=== PATIENT | female | born 1965 | race Caucasian/White ===

== ENCOUNTER 2016-03-13 17:29 | Inpatient (IN) | payer OTHER ==
[2016-03-13] VITALS (25 sets, daily range): BP systolic 80–144; BP diastolic 51–79; PULSE 78–158; RESP 12–18; TEMP 97.7–98.5; O2SAT 94–100
[~2016-03-13] VITALS: Ht 160 cm; Wt 79.5 kg
[2016-03-13] MEDS ORDERED: NALOXONE HCL 2 MG/2 ML VIAL ONE (17:36)
[2016-03-13] MEDS ORDERED: ETOMIDATE 20 MG/10 ML VIAL ONE (17:45)
[2016-03-13] MEDS ORDERED: SUCCINYLCHOLINE CHLORIDE 200 MG/10 ML VIAL ONE (17:45)
[2016-03-13] MEDS ORDERED: PROPOFOL 1000 MG/100 ML INJ 100 ML ONE (17:54)
[2016-03-13] MEDS ORDERED: DILTIAZEM HCL 25 MG/5 ML VIAL ONE (17:55)
[2016-03-13] MEDS ORDERED: PROPOFOL 1000 MG/100 ML INJ 100 ML IV SCH (18:00)
[2016-03-13] MEDS ORDERED: PHENYLEPHRINE HCL 10 MG/ML VIAL IV PUSH ONE (18:00)
[2016-03-13] MEDS ORDERED: DILTIAZEM HCL 25 MG/5 ML VIAL IVP ONE (18:00)
[2016-03-13] MEDS ORDERED: DILTIAZEM INJ 125 MG in SODIUM CHLORIDE 0.9% INJ 100 ML IV SCH (18:00)
[2016-03-13] MEDS ORDERED: SODIUM CHLORIDE 0.9% FLUSH 5 ML FLUSH IVF PRN (18:00)
[2016-03-13 18:17] LABS: BLOOD, URINE NEG (NEG); GLUCOSE,URINE NEG (NEG); KETONE, URINE NEG (NEG); NITRITE,URINE NEG (NEG); SQUAMOUS EPITHELIAL CELL URINE <1 /hpf (0-5); URINE COLOR YELLOW (YELLW/STRAW)
[2016-03-13 18:23] LABS: COMMENT (UR) CULT NOT INDICATED; CULTURE IF INDICATED CULT NOT INDICATED
[2016-03-13 18:26] LABS: AUTOMATED NEUTROPHIL # 19.2 TH/MM3 (1.8-7.7); BASOPHIL % 0.2 % (0.0-2.0); EOSINOPHIL # 0.1 TH/MM3 (0-0.4); EOSINOPHIL % 0.5 % (0.0-4.0); HEMATOCRIT 50.5 % (35.0-46.0); HEMO FLAGS DIFF FINAL; LYMPH % 12.1 % (9.0-44.0); LYMPHOCYTE # 2.8 TH/MM3 (1.0-4.8); MEAN CELL VOLUME 93.7 FL (80.0-100.0); MEAN CORPUSCULAR HEMOGLOBIN 30.2 PG (27.0-34.0); MEAN CORPUSCULAR HGB CONC 32.2 % (32.0-36.0); MONO % 5.1 % (0.0-8.0); NEUT % 82.1 % (16.0-70.0); PLATELET COUNT 277 TH/MM3 (150-450); RED CELL DISTRIBUTION WIDTH 15.8 % (11.6-17.2); WHITE BLOOD COUNT 23.4 TH/MM3 (4.0-11.0)
[2016-03-13 18:38] LABS: PROTHROMBIN TIME - PATIENT 10.8 SEC (9.8-11.6)
[2016-03-13 18:38] LABS: BLOOD GAS BASE EXCESS -10.5 mmol/L (-2-2); BLOOD GAS CARBOXYHEMOGLOBIN 1.3 % (0-4); BLOOD GAS HCO3 17 mmol/L (22-26); BLOOD GAS METHEMOGLOBIN 2.1 % (0-2); BLOOD GAS O2 HGB SATURATION 96 % (90-100); BLOOD GAS OXYGEN CONTENT 22.9 Vol % (12.0-20.0); BLOOD GAS PCO2 47 mmHg (38-42); BLOOD GAS PO2 330 mmHG (61-120); BLOOD GAS TOTAL HGB 16.4 G/DL (12.0-16.0); TEMP CORR TO 98.6
[2016-03-13 18:39] LABS: CRITICAL VALUE YES; DRAW SITE RT RADIAL; FIO2 100 %; NUMBER OF ARTERIAL PUNCTURES 1; OXYGEN DEVICE VENTILATOR; ULNAR PULSE PRESENT; VENT SETTINGS AC12/500/5PEEP
[2016-03-13 18:40] LABS: STAT YES
--- NOTE | 2016-03-13 18:49 | RADRPT ---
EXAM DATE/TIME: 03/13/2016 18:17 [facility] COMPARISON: No previous studies available for comparison. INDICATIONS : Post intubation. MEDICAL HISTORY : Unobtainable. SURGICAL HISTORY : Unobtainable. ENCOUNTER: Initial ACUITY: 1 day PAIN SCORE: Non-responsive. LOCATION: Bilateral chest FINDINGS: Patient is intubated. Endotracheal tube tip is approximately 1 cm above the shabbir. There is a nasoga stric tube coursing into the stomach. Mild hazy infiltrate seen of both lung bases. No effusion demonstrated. No pneumothorax. CONCLUSION: Tip of the endotracheal tube is close to the shabbir. It could be pulled back a couple centimeters saf shabbir. Nasogastric tube courses into the stomach. Hazy bibasilar infiltrates. Guillaume Ruvalcaba MD on March 13, 2016 at 18:46 Board Certified Radiologist. This report was verified electronically.
[2016-03-13] MEDS ORDERED: CEFEPIME INJ 1,000 MG in SODIUM CHLORIDE 0.9% INJ 100 ML IV ONE (19:00)
[2016-03-13] MEDS ORDERED: VANCOMYCIN INJ 1,000 MG in SODIUM CHLOR 0.9% 250 ML INJ 250 ML IV ONE (19:00)
[2016-03-13 19:02] LABS: AMPHETAMINE, URINE NEG (NEG); BARBITURATES, URINE NEG (NEG); COCAINE, URINE POS (NEG)
--- NOTE | 2016-03-13 19:23 | PD ---
HPI Chief Complaint: Altered Mental Status Time Seen by Provider: 17:31 Travel History International Travel<30 days: No Contact w/Intl Traveler<30days: No Traveled to known affect area: No History of Present Illness HPI 50-year-old woman, reported history of substance abuse, presents emergency Department with altered mental status and hypoxia. EMS reports that girlfriend called the ambulance for decreased responsiveness. They found her unresponsive , heart rate of 180 and A. fib, 68% on room air. They administered Narcan with some improvement. He assisted ventilations with bag valve mask. Roommate/ friend endorse alcohol use today, but no drug use. History Past Medical History Narrative Medical Alcohol use Menopausal: No : 2 Para: 2 Social History Alcohol Use: Yes Tobacco Use: No Allergies-Medications (Allergen,Severity, Reaction): Coded Allergies: No Known Allergies (Verified , 08/07/13) Reported Meds & Prescriptions Reported Meds & Active Scripts Active No Active Prescriptions or Reported Medications Review of Systems ROS Limitations: Clinical Condition Physical Exam Narrative GENERAL: 50-year-old woman, intermittent responsiveness, feels warm. SKIN: Warm and dry. HEAD: Atraumatic. Normocephalic. EYES: Pupils equal and round. No scleral icterus. No injection or drainage. ENT: No nasal bleeding or discharge. Mucous membranes pink and moist. NECK: Trachea midline. No JVD. CARDIOVASCULAR: Heart rate rapid, 170s 180s, irregular. RESPIRATORY: Coarse breath sounds throughout, irregular breathing. GASTROINTESTINAL: Abdomen soft, non-tender, nondistended. Hepatic and splenic margins not palpable. MUSCULOSKELETAL: No obvious deformities. No edema. NEUROLOGICAL: Obtunded with intermittent responsiveness, was actually talk at time didn't answer question or so but then rapidly becomes unresponsive again. Will not really follow any commands. Withdraws from pain in all 4 extremities. Data Data Last Documented VS Vital Signs Date Time Temp Pulse Resp B/P Pulse Ox O2 Delivery O2 Flow Rate FiO2 03/13/16 18:40 88 107/76 100 Ventilator 03/13/16 18:02 18 03/13/16 18:00 100 03/13/16 17:43 97.7 15 Orders Naloxone Inj (Narcan Inj) (03/13/16 17:36) Etomidate Inj (Amidate Inj) (03/13/16 17:45) Succinylcholine Inj (Quelicin Inj) (03/13/16 17:45) Propofol 1000 Mg/100 Ml Inj (Diprivan 10 (03/13/16 17:54) Diltiazem Inj (Cardizem Inj) (03/13/16 17:55) Alcohol (Ethanol) (03/13/16 17:54) Beta Hcg (Quant/Titer) (03/13/16 17:54) Complete Blood Count With Diff (03/13/16 17:54) Comprehensive Metabolic Panel (03/13/16 17:54) Drug Screen, Random Urine (03/13/16 17:54) Prothrombin Time / Inr (Pt) (03/13/16 17:54) Act Partial Throm Time (Ptt) (03/13/16 17:54) Salicylates (Aspirin) (03/13/16 17:54) Tylenol (Acetaminophen) (03/13/16 17:54) Urinalysis - C+S If Indicated (03/13/16 17:54) Chest, Single Ap (03/13/16 17:54) Ct Brain W/O Iv Contrast(Rout) (03/13/16 17:54) Arterial Blood Gas (Abg) (03/13/16 17:54) Blood Glucose (03/13/16 17:54) Iv Access Insert/Monitor (03/13/16 17:54) Ecg Monitoring (03/13/16 17:54) Oximetry (03/13/16 17:54) Ng Gastric Tube Insert/Monitor (03/13/16 17:54) Urinary Catheter Insert/Apply (03/13/16 17:54) Sodium Chloride 0.9% Flush (Ns Flush) (03/13/16 18:00) Restraints Non-Violent SHALINI.Q3H (03/13/16 17:54) Vital Signs (Adult) Q15MX4,Q4H (03/13/16 17:54) ^ Senior Chemist / Telemetry (03/13/16 17:54) Cardiac Rhythm SHALINI.Q8H (03/13/16 17:54) ^ Notify Dr: Other (03/13/16 17:54) Diltiazem Inj (Cardizem Inj) (03/13/16 18:00) Diltiazem Inj (Cardizem Inj) (03/13/16 18:00) Propofol 1000 Mg/100 Ml Inj (Diprivan 10 (03/13/16 18:00) ^ Infusion (03/13/16 17:54) RASS (03/13/16 17:54) Neurological Rass Scale SHALINI.Q2H (03/13/16 17:54) Phenylephrine Inj (Neosynephrine Inj) (03/13/16 18:00) Electrocardiogram (03/13/16 ) Vancomycin Inj (Vancomycin Inj) (03/13/16 19:00) Cefepime Inj (Maxipime Inj) (03/13/16 19:00) Blood Culture (03/13/16 19:02) Labs Laboratory Tests Test 03/13/16 03/13/16 17:58 18:29 White Blood Count 23.4 TH/MM3 Red Blood Count 5.40 MIL/MM3 Hemoglobin 16.3 GM/DL Hematocrit 50.5 % Mean Corpuscular Volume 93.7 FL Mean Corpuscular Hemoglobin 30.2 PG Mean Corpuscular Hemoglobin 32.2 % Concent Red Cell Distribution Width 15.8 % Platelet Count 277 TH/MM3 Mean Platelet Volume 8.5 FL Neutrophils (%) (Auto) 82.1 % Lymphocytes (%) (Auto) 12.1 % Monocytes (%) (Auto) 5.1 % Eosinophils (%) (Auto) 0.5 % Basophils (%) (Auto) 0.2 % Neutrophils # (Auto) 19.2 TH/MM3 Lymphocytes # (Auto) 2.8 TH/MM3 Monocytes # (Auto) 1.2 TH/MM3 Eosinophils # (Auto) 0.1 TH/MM3 Basophils # (Auto) 0.0 TH/MM3 CBC Comment DIFF FINAL Differential Comment Prothrombin Time 10.8 SEC Prothromb Time International 1.0 RATIO Ratio Activated Partial 22.0 SEC Thromboplast Time Urine Color YELLOW Urine Turbidity CLEAR Urine pH 6.0 Urine Specific [place] 1.003 Urine Protein NEG mg/dL Urine Glucose (UA) NEG mg/dL Urine Ketones NEG mg/dL Urine Occult Blood NEG Urine Nitrite NEG Urine Bilirubin NEG Urine Urobilinogen 2.0 MG/DL Urine Leukocyte Esterase NEG Urine RBC LESS THAN 1 /hpf Urine Squamous Epithelial <1 /hpf Cells Microscopic Urinalysis Comment CULT NOT INDICATED Blood Gas Puncture Site RT RADIAL Blood Gas Patient Temperature 98.6 Blood Gas HCO3 17 mmol/L Blood Gas Base Excess -10.5 mmol/L Blood Gas Oxygen Saturation 96 % Arterial Blood pH 7.17 Arterial Blood Partial 47 mmHg Pressure CO2 Arterial Blood Partial 330 mmHG Pressure O2 Arterial Blood Oxygen Content 22.9 Vol % Arterial Blood 1.3 % Carboxyhemoglobin Arterial Blood Methemoglobin 2.1 % Blood Gas Hemoglobin 16.4 G/DL Oxygen Delivery Device VENTILATOR Blood Gas Ventilator Setting AC12/500/5PEEP Blood Gas Inspired Oxygen 100 % [facility] Medical Decision Making Medical Screen Exam Complete: Yes Emergency Medical Condition: Yes Interpretation(s) My review of EKG: Normal sinus rhythm at a rate of 88, normal axis, normal intervals, no acute ischemia. VBG 7.17/47/3:30/60.5, base excess -10.5 LABS: CBC remarkable for white count of 23,000, hemoglobin 16.3 Chemistries are pending Lactate pending troponin pending HCG pending UA negative Differential Diagnosis Overdose, infection, sepsis, GA, A. fib, other Narrative Course Medical decision making INITIAL cause a 50-year-old woman presents to the emergency department obtunded. Some response to Narcan. Intermittent unresponsiveness. A. fib RVR. Low blood pressure. Patient was given additional Narcan with vomiting but no significant improvement in mental status. She was then intubated. She was given IV fluids. Heart rate on Azo converted to sinus rhythm. Blood pressure remained stable. She given IV fluids. Difficult to get IV access. Labs are coming back and show significant metabolic acidosis. We'll continue IV fluid resuscitation, antibiotics, lactate, cultures. Patient will be admitted to the ICU. Critical Care Narrative Aggregate critical care time was 35 minutes. Time to perform other separately billable procedures was not included in the critical care time. My time did not include minutes spent treating any other patients simultaneously or on activities that did not directly contribute to the patient's treatment. The services I provided to this patient were to treat and/or prevent clinically significant deterioration that could result in: , disability, recognized stroke, nor can I sepsis. I provided critical care services requiring my management, as noted below: Chart data review, documentation time, medication orders and management, vital sign assessments/reviewing monitor data, ordering and reviewing lab tests, ordering and interpreting/reviewing x-rays and diagnostic studies, care of the patient and discussion of the patient with the admitting physicians. Procedures Procedure Narrative After the risks and benefits were discussed the following procedure was performed: INTUBATION: The patient was put in optimal position for the procedure. Rapid sequence intubation was initiated by me using 20 milligrams of etomidate IV and 100 milligrams of succinylcholine IV. The patient was intubated with a 8.0 cuffed endotracheal tube. Tube placement was confirmed by visualization of the tube and balloon passing through the cords, capnometry and subsequent chest x- ray. Breath sounds were equal and well aerated bilaterally postintubation. No breath sounds over stomach. Patient tolerated procedure well. CENTRAL VENOUS LINE: The site was prepped with Betadine and sterilely draped. It was infiltrated with 1% lidocaine plain. The deep vein was cannulated using normal Seldinger technique. A triple lumen central line was placed in the right femoral site and secured with simple interrupted suture. The site was sterilely dressed. The patient tolerated the procedure well. Scripts No Active Prescriptions or Reported Meds David Leija MD Mar 13, 2016 19:23
[2016-03-13] MEDS ORDERED: SODIUM CHLOR 0.9% 1000 ML INJ 1,000 ML IV ONE ×2 (20:00)
--- NOTE | 2016-03-13 20:10 | PD ---
Physical Exam Narrative General: The patient is a well-developed well-nourished female, intubated on examination , opening her eyes intermittently on examination, moving her left arm spontaneously. The patient seems to be reaching for the endotracheal tube. The patient is looking around the room. The patient's diverting and was titrated up. The patient is noted to have emesis on her sheets. The patient reportedly did have an episode of vomiting prior to intubation. Head and Neck exam: Head is normocephalic atraumatic. Eyes: EOMI, pupils are equal round and reactive to light. Nose: Midline septum with pink mucous membranes Mouth: Dentition unremarkable. Moist mucus membranes. Neck: No palpable lymphadenopathy. No nuchal rigidity. No thyromegaly. Cardiovascular: Regular rate and rhythm without murmurs, gallops, or rubs. No pulse deficit to the extremities and simultaneous auscultation and palpation of her radial artery. Prior to arrival, the patient reportedly did have A. fib with RVR and spontaneously converted to a sinus rhythm. . Lungs: Clear to auscultation bilaterally. No wheezes, rhonchi, or rales. Abdomen: Soft, without tenderness to palpation in all 4 quadrants of the abdomen. No guarding, rebound, or rigidity. Normal bowel sounds are audible. Extremities: No clubbing, cyanosis, or edema. 2+ pulses in all 4 extremities. Neurologic Exam: She is sedated and intubated. She does spontaneously open her eyes and look around the room. The patient is able to follow some commands. The patient seems to be reaching with her left hand to the endotracheal tube. Skin Exam: No rash noted. Intact skin that is warm and dry. Data Data Last Documented VS Vital Signs Date Time Temp Pulse Resp B/P Pulse Ox O2 Delivery O2 Flow Rate FiO2 03/13/16:17 78 93/68 99 Ventilator 03/13/16 22:00 40 03/13/16 18:02 18 03/13/16 17:43 97.7 15 Orders Naloxone Inj (Narcan Inj) (03/13/16 17:36) Etomidate Inj (Amidate Inj) (03/13/16 17:45) Succinylcholine Inj (Quelicin Inj) (03/13/16 17:45) Propofol 1000 Mg/100 Ml Inj (Diprivan 10 (1/16/17 17:54) Diltiazem Inj (Cardizem Inj) (03/13/16 17:55) Alcohol (Ethanol) (03/13/16 17:54) Beta Hcg (Quant/Titer) (03/13/16 17:54) Complete Blood Count With Diff (03/13/16 17:54) Comprehensive Metabolic Panel (03/13/16 17:54) Drug Screen, Random Urine (03/13/16 17:54) Prothrombin Time / Inr (Pt) (03/13/16 17:54) Act Partial Throm Time (Ptt) (03/13/16 17:54) Salicylates (Aspirin) (03/13/16 17:54) Tylenol (Acetaminophen) (03/13/16 17:54) Urinalysis - C+S If Indicated (03/13/16 17:54) Chest, Single Ap (03/13/16 17:54) Ct Brain W/O Iv Contrast(Rout) (03/13/16 17:54) Arterial Blood Gas (Abg) (03/13/16 17:54) Blood Glucose (03/13/16 17:54) Iv Access Insert/Monitor (03/13/16 17:54) Ecg Monitoring (03/13/16 17:54) Oximetry (03/13/16 17:54) Ng Gastric Tube Insert/Monitor (03/13/16 17:54) Urinary Catheter Insert/Apply (03/13/16 17:54) Sodium Chloride 0.9% Flush (Ns Flush) (03/13/16 18:00) Restraints Non-Violent SHALINI.Q3H (03/13/16 17:54) Vital Signs (Adult) Q15MX4,Q4H (03/13/16 17:54) ^ Supervising Appraiser / Telemetry (03/13/16 17:54) Cardiac Rhythm SHALINI.Q8H (03/13/16 17:54) ^ Notify Dr: Other (03/13/16 17:54) Diltiazem Inj (Cardizem Inj) (03/13/16 18:00) Diltiazem Inj (Cardizem Inj) (03/13/16 18:00) Propofol 1000 Mg/100 Ml Inj (Diprivan 10 (03/13/16 18:00) ^ Infusion (03/13/16 17:54) RASS (03/13/16 17:54) Neurological Rass Scale SHALINI.Q2H (03/13/16 17:54) Phenylephrine Inj (Neosynephrine Inj) (03/13/16 18:00) Electrocardiogram (03/13/16 ) Vancomycin Inj (Vancomycin Inj) (03/13/16 19:00) Cefepime Inj (Maxipime Inj) (03/13/16 19:00) Blood Culture (03/13/16 19:02) Troponin I (03/13/16 19:19) Lactic Acid (03/13/16 19:19) Sodium Chlor 0.9% 1000 Ml Inj (Ns 1000 M (03/13/16 20:00) Sodium Chlor 0.9% 1000 Ml Inj (Ns 1000 M (03/13/16 20:00) Ed Urine Pregnancytest Poc (03/13/16 20:30) Arterial Blood Gas (Abg) (03/13/16 21:15) Electrocardiogram (03/13/16 17:37) Calcium Gluconate Inj (Calcium Gluconate (03/13/16 22:45) Admit Order (Ed Use Only) (03/13/16 22:49) Labs Laboratory Tests Test 03/13/16 03/13/16 03/13/16 03/13/16 17:58 18:29 19:42 21:34 White Blood Count 23.4 TH/MM3 Red Blood Count 5.40 MIL/MM3 Hemoglobin 16.3 GM/DL Hematocrit 50.5 % Mean Corpuscular Volume 93.7 FL Mean Corpuscular Hemoglobin 30.2 PG Mean Corpuscular Hemoglobin 32.2 % Concent Red Cell Distribution Width 15.8 % Platelet Count 277 TH/MM3 Mean Platelet Volume 8.5 FL Neutrophils (%) (Auto) 82.1 % Lymphocytes (%) (Auto) 12.1 % Monocytes (%) (Auto) 5.1 % Eosinophils (%) (Auto) 0.5 % Basophils (%) (Auto) 0.2 % Neutrophils # (Auto) 19.2 TH/MM3 Lymphocytes # (Auto) 2.8 TH/MM3 Monocytes # (Auto) 1.2 TH/MM3 Eosinophils # (Auto) 0.1 TH/MM3 Basophils # (Auto) 0.0 TH/MM3 CBC Comment DIFF FINAL Differential Comment Prothrombin Time 10.8 SEC Prothromb Time International 1.0 RATIO Ratio Activated Partial 22.0 SEC Thromboplast Time Urine Color YELLOW Urine Turbidity CLEAR Urine pH 6.0 Urine Specific [place] 1.003 Urine Protein NEG mg/dL Urine Glucose (UA) NEG mg/dL Urine Ketones NEG mg/dL Urine Occult Blood NEG Urine Nitrite NEG Urine Bilirubin NEG Urine Urobilinogen 2.0 MG/DL Urine Leukocyte Esterase NEG Urine RBC LESS THAN 1 /hpf Urine Squamous Epithelial <1 /hpf Cells Microscopic Urinalysis Comment CULT NOT INDICATED Urine Opiates Screen NEG Urine Barbiturates Screen NEG Urine Amphetamines Screen NEG Urine Benzodiazepines Screen POS Urine Cocaine Screen POS Urine Cannabinoids Screen NEG Blood Gas Puncture Site RT RADIAL Blood Gas Patient Temperature 98.6 Blood Gas HCO3 17 mmol/L Blood Gas Base Excess -10.5 mmol/L Blood Gas Oxygen Saturation 96 % Arterial Blood pH 7.17 Arterial Blood Partial 47 mmHg Pressure CO2 Arterial Blood Partial 330 mmHG Pressure O2 Arterial Blood Oxygen Content 22.9 Vol % Arterial Blood 1.3 % Carboxyhemoglobin Arterial Blood Methemoglobin 2.1 % Blood Gas Hemoglobin 16.4 G/DL Oxygen Delivery Device VENTILATOR Blood Gas Ventilator Setting AC12/500/5PEEP Blood Gas Inspired Oxygen 100 % Troponin I 0.30 NG/ML Sodium Level 143 MEQ/L Potassium Level 3.7 MEQ/L Chloride Level 109 MEQ/L Carbon Dioxide Level 20.0 MEQ/L Anion Gap 14 MEQ/L Blood Urea Nitrogen 7 MG/DL Creatinine 0.99 MG/DL Estimat Glomerular Filtration 59 ML/MIN Rate Random Glucose 116 MG/DL Calcium Level 6.4 MG/DL Protein Corrected Calcium 7.0 MG/DL Total Bilirubin 0.7 MG/DL Aspartate Amino Transf 239 U/L (AST/SGOT) Alanine Aminotransferase 125 U/L (ALT/SGPT) Alkaline Phosphatase 174 U/L Total Protein 5.9 GM/DL Albumin 2.7 GM/DL Human Chorionic Gonadotropin, LESS THAN 1 Quant MIU/ML Salicylates Level LESS THAN 1.7 MG/DL Acetaminophen Level LESS THAN 2.0 MCG/ML Ethyl Alcohol Level 22 MG/DL Test 03/13/16 21:50 Blood Gas Puncture Site LT FEMORAL Blood Gas Patient Temperature 98.6 Blood Gas HCO3 17 mmol/L Blood Gas Base Excess -8.5 mmol/L Blood Gas Oxygen Saturation 95 % Arterial Blood pH 7.27 Arterial Blood Partial 39 mmHg Pressure CO2 Arterial Blood Partial 130 mmHG Pressure O2 Arterial Blood Oxygen Content 20.2 Vol % Arterial Blood 1.6 % Carboxyhemoglobin Arterial Blood Methemoglobin 2.1 % Blood Gas Hemoglobin 15.0 G/DL Oxygen Delivery Device VENTILATOR Blood Gas Ventilator Setting AC12/500 5 PEEP Blood Gas Inspired Oxygen 50 % [id number] Medical Record Reviewed: Yes Supervised Visit with BIBIANA: No Interpretation(s) Last Impressions Head CT 03/13/[id number] Signed Impressions: Service Date/Time: Sunday, March 13, 2016 21:07 - CONCLUSION: No acute intracranial abnormality demonstrated. Sinus disease and chronic appearing right mastoid disease. Guillaume Ruvalcaba MD Chest X-Ray 03/13/161753 Signed Impressions: Service Date/Time: Sunday, March 13, 2016 18:17 - CONCLUSION: Tip of the endotracheal tube is close to the shabbir. It could be pulled back a couple centimeters safely. Nasogastric tube courses into the stomach. Hazy bibasilar infiltrates. Guillaume Ruvalcaba MD Narrative Course During the course of the patients emergency department visit, the patients history, examination, and differential diagnosis were reviewed with the patient. The patient had IV access obtained and blood work sent for analysis. The patient's case was checked out to me by Dr. Leija who requested that I review the patient's laboratory studies and admit the patient to the intensive care unit. The patient was provided 2 L of normal saline IV fluids which was again administered and the patient's blood pressure dropped during central line placement by Dr. Leija. The patients laboratory studies were reviewed and remarkable for a leukocytosis with a white count of 23.4, hemoglobin 16.3, platelets 274 with 82.1 neutrophils. The patient was provided IV antibiotic. PT 10.8, PTT 22.0, urinalysis is unremarkable. Urine drug screen is positive for benzodiazepines, cocaine. The patient's ABG reveals a pH of 7.17, bicarbonate 17, base excess - 10.5, PCO2 is 47, PO2 330. The patient's FiO2 will be decreased. Radiology studies were reviewed and remarkable for a chest x-ray that shows that the tip of the endotracheal tube is close to the shabbir this will be backed up by 2 cm. NG tube courses in the stomach, hazy bibasilar infiltrates are noted. The patients results were discussed with the patient, including the plan of care. I explained that further testing and/ or monitoring is indicated based on the patients history, examination, and/ or laboratory findings. Therefore, I recommended admission for additional evaluation. The patient expressed understanding and was agreeable with this plan. The patient was admitted to the hospital in guarded condition and sent to a bed under the care of the product/device technologist. Physician Communication Physician Communication The patient's case was discussed with Dr. Frazier who did agree to admit the patient for further evaluation and treatment at this time Diagnosis Primary Impression: Altered mental status Qualified Code: R40.0 - Somnolence Additional Impressions: Hypoxia Polysubstance abuse Admitting Information Admitting Physician Requests: Admit Scripts Unable to Obtain Active Prescriptions or Reported Meds Feli López MD Mar 13, 2016 20:10
--- NOTE | 2016-03-13 21:23 | RADRPT ---
EXAM DATE/TIME: 03/13/2016 21:07 [facility] COMPARISON: No previous studies available for comparison. INDICATIONS : Altered mental status. RADIATION DOSE: 42.54 CTDIvol (mGy) MEDICAL HISTORY : Hypertension. ETOH, drug abuse. SURGICAL HISTORY : None. ENCOUNTER: Initial ACUITY: 1 day PAIN SCALE: Non-responsive LOCATION: cranial TECHNIQUE: Multiple contiguous axial images were obtained of the head. Using automated exposure control and adj ustment of the mA and/or kV according to patient size, radiation dose was kept as low as reasonably a chievable to obtain optimal diagnostic quality images. FINDINGS: CEREBRUM: The ventricles are normal for age. No evidence of midline shift, mass lesion, hemorrhage or acute in farction. No extra-axial fluid collections are seen. POSTERIOR FOSSA: The cerebellum and brainstem are intact. The 4th ventricle is midline. The cerebellopontine angle i s unremarkable. EXTRACRANIAL: There is mucoperiosteal thickening of the visualized sinuses. Also chronic appearing opacification an d sclerosis of the right mastoid air cells. SKULL: The calvaria is intact. No evidence of skull fracture. CONCLUSION: No acute intracranial abnormality demonstrated. Sinus disease and chronic appearing right mastoid dis ease. Guillaume Ruvalcaba MD on March 13, 2016 at 21:21 Board Certified Radiologist. This report was verified electronically.
[2016-03-13 22:28] LABS: ANION GAP 14 MEQ/L (5-15); AST (GOT) 239 U/L (15-37); BLOOD UREA NITROGEN 7 MG/DL (7-18); CHLORIDE 109 MEQ/L (98-107); GLOMERULAR FILTRATION RATE 59 ML/MIN (>89); POTASSIUM 3.7 MEQ/L (3.5-5.1); SODIUM (NA) 143 MEQ/L (136-145)
[2016-03-13 22:41] LABS: ACETAMINOPHEN LESS THAN 2.0 MCG/ML (10.0-30.0); ALKALINE PHOSPHATASE 174 U/L (45-117); ALT (GPT) 125 U/L (10-53); BETA HCG QUANT LESS THAN 1 MIU/ML (0-5); TOTAL BILIRUBIN ADULT 0.7 MG/DL (0.2-1.0)
[2016-03-13] MEDS ORDERED: CALCIUM GLUCONATE INJ 1 GM in DEXTROSE 5% IN WATER 100ML INJ 100 ML IV ONE ×2 (22:45)
[2016-03-13 23:23] LABS: BLOOD GAS BASE EXCESS -8.5 mmol/L (-2-2); BLOOD GAS CARBOXYHEMOGLOBIN 1.6 % (0-4); BLOOD GAS HCO3 17 mmol/L (22-26); BLOOD GAS METHEMOGLOBIN 2.1 % (0-2); BLOOD GAS O2 HGB SATURATION 95 % (90-100); BLOOD GAS OXYGEN CONTENT 20.2 Vol % (12.0-20.0); BLOOD GAS PCO2 39 mmHg (38-42); BLOOD GAS PO2 130 mmHG (61-120); CRITICAL VALUE YES; DRAW SITE LT FEMORAL; FIO2 50 %; NUMBER OF ARTERIAL PUNCTURES 1; OXYGEN DEVICE VENTILATOR; TEMP CORR TO 98.6; VENT SETTINGS AC12/500 5 PEEP
[2016-03-13 23:24] LABS: STAT NO
[2016-03-13] MEDS ORDERED: DEXTROSE 50% IN WATER 50 ML VIAL(D50) IV PUSH PRN (23:30)
--- NOTE | 2016-03-13 23:38 | HHI.HP ---
HPI Service Critical Care Medicine Primary Care Physician No Primary Care Physician Admission Diagnosis AMS, Polysubstance abuse, leukocytosis Diagnosis: Chief Complaint: altered mental status Travel History International Travel<30 Days: No Contact w/Intl Traveler <30 Da: No Traveled to Known Affected Are: No History of Present Illness This is a 50-year-old female who presented by EMS for altered mental status. She apparently completed detox yesterday and was sent home where she used cocaine and benzodiazepines, and overdosed on this. EMS found her unresponsive and intubated her. When I evaluated the patient, she was now awake and alert. She passed her SBT and I extubate her in the emergency department. She stated she doesn't remember much, except for leaving detox and then doing some cocaine. She denies any complaints, particularly chest pain, shortness of breath, headache, fever or chills, nausea vomiting constipation or diarrhea or abdominal pain. Critical care medicine was initially consulted to evaluate her altered mental status and respiratory failure, both which have now resolved. Of note, she does have an elevated troponin at 0.3. She was also initially in atrial fibrillation with rapid ventricular response when she presented to the ER , but converted spontaneously to normal sinus rhythm. Review of Systems Constitutional: DENIES: Diaphoretic episodes, Fever, Chills Respiratory: DENIES: Cough, Wheezing, Hemoptysis, Sputum production, Shortness of breath Cardiovascular: DENIES: Chest pain, Palpitations, Syncope, Dyspnea on Exertion , PND, Lower Extremity Edema, Orthopnea Gastrointestinal: DENIES: Abdominal pain, Black stools, Bloody stools, Constipation, Diarrhea, Nausea, Vomiting Psychiatric: DENIES: Suicidal Ideation Past Family Social History Allergies: Coded Allergies: No Known Allergies (Verified , 03/13/16) Past Medical History Past cocaine use. Past Surgical History Unknown. Patient is still not awake enough to give me a complete history. Reported Medications None Active Ordered Medications See MAR Family History Unknown, but likely noncontributory to this acute illness. Social History Positive for cocaine use. Physical Exam Vital Signs Vital Signs Date Time Temp Pulse Resp B/P Pulse Ox O2 Delivery O2 Flow Rate FiO2 03/13/16 22:17 78 93/68 99 Ventilator 03/13/16 21:38 79 98/72 100 Ventilator 03/13/16 21:19 79 98/72 100 Ventilator 03/13/16 20:11 82 83/61 100 Ventilator 03/13/16 19:50 86 80/60 98 Ventilator 03/13/16 19:30 86 93/65 Ventilator 03/13/16 19:26 85 81/58 99 Ventilator 03/13/16 19:21 85 89/62 99 Ventilator 03/13/16 19:19 87 92/64 99 Ventilator 03/13/16 18:40 88 107/76 100 Ventilator 03/13/16 18:30 91 105/71 100 Ventilator 03/13/16 18:25 94 105/71 100 Ventilator 03/13/16 18:15 130 111/68 100 Ventilator 03/13/16 18:13 117 105/74 100 Ventilator 03/13/16 18:02 133 18 144/73 100 03/13/16 18:00 100 100 03/13/16 17:43 97.7 158 14 108/69 100 Non-Rebreather 15 03/13/16 17:36 154 12 90/60 94 Non-Rebreather 15 03/13/16 17:36 96 Non-Rebreather 15 03/13/16 17:31 137 14 98/51 Physical Exam GENERAL: Middle-aged female, lying in bed, initially intubated on my initial evaluation. Awake and alert. HEENT: Normocephalic, atraumatic. Pupils equally round and reactive. Mucous membranes are moist. NECK: Trachea is midline. There is no JVD. CHEST: Equal chest rise. Clear to auscultation. Initially intubated, once she was extubated after she passed her SBT she was stable on 2 L nasal cannula CARDIOVASCULAR: Normal rate, regular rhythm. No appreciable murmurs. ABDOMEN: Off, obese, nontender, nondistended. No guarding. MUSCULOSKELETAL: No peripheral edema. Distal pulses 2+. NEUROLOGICAL: RASS 0. CAM -. Follows commands all 4 extremity. No gross focal motor or sensory deficits. Laboratory Laboratory Tests Test 03/13/16 03/13/16 03/13/16 03/13/16 17:58 18:29 19:42 21:34 White Blood Count 23.4 Red Blood Count 5.40 Hemoglobin 16.3 Hematocrit 50.5 Mean Corpuscular Volume 93.7 Mean Corpuscular Hemoglobin 30.2 Mean Corpuscular Hemoglobin 32.2 Concent Red Cell Distribution Width 15.8 Platelet Count 277 Mean Platelet Volume 8.5 Neutrophils (%) (Auto) 82.1 Lymphocytes (%) (Auto) 12.1 Monocytes (%) (Auto) 5.1 Eosinophils (%) (Auto) 0.5 Basophils (%) (Auto) 0.2 Neutrophils # (Auto) 19.2 Lymphocytes # (Auto) 2.8 Monocytes # (Auto) 1.2 Eosinophils # (Auto) 0.1 Basophils # (Auto) 0.0 CBC Comment DIFF FINAL Differential Comment Prothrombin Time 10.8 Prothromb Time International 1.0 Ratio Activated Partial 22.0 Thromboplast Time Urine Color YELLOW Urine Turbidity CLEAR Urine pH 6.0 Urine Specific [place] 1.003 Urine Protein NEG Urine Glucose (UA) NEG Urine Ketones NEG Urine Occult Blood NEG Urine Nitrite NEG Urine Bilirubin NEG Urine Urobilinogen 2.0 Urine Leukocyte Esterase NEG Urine RBC LESS THAN 1 Urine Squamous Epithelial <1 Cells Microscopic Urinalysis Comment CULT NOT INDICATED Urine Opiates Screen NEG Urine Barbiturates Screen NEG Urine Amphetamines Screen NEG Urine Benzodiazepines Screen POS Urine Cocaine Screen POS Urine Cannabinoids Screen NEG Blood Gas Puncture Site RT RADIAL Blood Gas Patient Temperature 98.6 Blood Gas HCO3 17 Blood Gas Base Excess -10.5 Blood Gas Oxygen Saturation 96 Arterial Blood pH 7.17 Arterial Blood Partial 47 Pressure CO2 Arterial Blood Partial 330 Pressure O2 Arterial Blood Oxygen Content 22.9 Arterial Blood 1.3 Carboxyhemoglobin Arterial Blood Methemoglobin 2.1 Blood Gas Hemoglobin 16.4 Oxygen Delivery Device VENTILATOR Blood Gas Ventilator Setting AC12/500/5PEEP Blood Gas Inspired Oxygen 100 Troponin I 0.30 Sodium Level 143 Potassium Level 3.7 Chloride Level 109 Carbon Dioxide Level 20.0 Anion Gap 14 Blood Urea Nitrogen 7 Creatinine 0.99 Estimat Glomerular Filtration 59 Rate Random Glucose 116 Calcium Level 6.4 Protein Corrected Calcium 7.0 Total Bilirubin 0.7 Aspartate Amino Transf 239 (AST/SGOT) Alanine Aminotransferase 125 (ALT/SGPT) Alkaline Phosphatase 174 Total Protein 5.9 Albumin 2.7 Human Chorionic Gonadotropin, LESS THAN 1 Quant Salicylates Level LESS THAN 1.7 Acetaminophen Level LESS THAN 2.0 Ethyl Alcohol Level 22 Test 03/13/16 21:50 Blood Gas Puncture Site LT FEMORAL Blood Gas Patient Temperature 98.6 Blood Gas HCO3 17 Blood Gas Base Excess -8.5 Blood Gas Oxygen Saturation 95 Arterial Blood pH 7.27 Arterial Blood Partial 39 Pressure CO2 Arterial Blood Partial 130 Pressure O2 Arterial Blood Oxygen Content 20.2 Arterial Blood 1.6 Carboxyhemoglobin Arterial Blood Methemoglobin 2.1 Blood Gas Hemoglobin 15.0 Oxygen Delivery Device VENTILATOR Blood Gas Ventilator Setting AC12/500 5 PEEP Blood Gas Inspired Oxygen 50 Date/Time Procedure Status Source Growth 03/13/16 19:49 Aerobic Blood Culture Received Blood Peripheral Pending 03/13/16 19:49 Anaerobic Blood Culture Received Blood Peripheral Pending Result Diagram: 03/13/16 1758 03/13/16 3964 Assessment and Plan Assessment and Plan Assessment: This is a 50-year-old female with a history of cocaine abuse who recently got out of detox and now presents with cocaine and benzodiazepine overdose. These have apparently resolved as she is now awake and alert. Certainly she does have an elevated troponin which is likely type II and STEMI/ demand ischemia and troponin leak from cocaine intoxication. We will continue gentle IV fluid hydration and trend her troponin. She is not having any signs or symptoms of acute coronary syndrome at this time. Given that she is now back to neurologic baseline, I do not think she requires ICU admission at this time. We will admit her to a telemetry monitored floor given her troponin leak and monitor her closely. I will consult the hospitalist service to resume management in the morning. Plan: 1. Cocaine and Benzodiazepine overdose -- monitor for signs of withdraw -- continue Telemetry -- will likely need psych consult -- measure serum lactate now and in the AM to monitor fluid resuscitation. -- MIVF LR @ 100cc/hr. -- monitor for signs of benzo withdraw. 2. Type II NSTEMI/Demand Ischemia -- trend troponins q8h. -- no signs of acute coronary syndrome -- continue telemetry 3. Hypocalcemia -- receiving iv calcium in the ER -- recheck calcium with BMP in the AM. 4. Shock Liver -- likely secondary to cocaine overdose -- trend daily LFTs -- Nursing bedside swallow evaluation, if she passes, will advance to clear liquid diet as tolerated 5. Leukocytosis -- likely reactive. -- I do not think she has an infectious source at this time. Will not cover with abx unless she is febrile or appears toxic. -- daily CBC -- Lovenox 40mg SQ q24h and SCDs for DVT prophylaxis -- does not meet evidence based criteria for GI prophy. -- admit to Tele floor. consult hospitalist. Code Status Full Code Norberto Frazier MD Mar 13, 2016 23:38
[2016-03-13] MEDS ORDERED: RESP: ALBUTEROL 2.5 MG/IPRATROPIUM 0.5 MG NEB (PRN) INH (23:45)
[2016-03-13] MEDS ORDERED: SODIUM CHLORIDE 0.9% FLUSH 5 ML FLUSH IV FLUSH PRN (23:45)
[2016-03-13] MEDS ORDERED: ONDANSETRON HCL 4 MG/2 ML VIAL IV PRN (23:45)
[2016-03-13] MEDS ORDERED: MORPHINE SULFATE 4 MG/ML INJ IV PRN (23:45)
[2016-03-13] MEDS ORDERED: CHLORHEXIDINE GLUCONATE 2 % 1 PACK (2 CLOTHS) TOP PRN (23:45)
[2016-03-13] MEDS ORDERED: MISCELLANEOUS NURSING INFORMATION XX SCH (23:45)
[2016-03-14] VITALS (13 sets, daily range): BP systolic 111–174; BP diastolic 76–93; PULSE 84–107; RESP 16–20; TEMP 96.9–99.4; O2SAT 92–100
[2016-03-14] MEDS: LACTATED RINGER'S 1000 ML INJ 1,000 ML IV SCH ×2 (01:07→10:21)
[2016-03-14] MEDS: ENOXAPARIN SODIUM 40 MG/0.4 ML SYRINGE SQ SCH ×2 (01:07→22:55)
[2016-03-14] MEDS: INSULIN NovoLIN REGULAR SUPPLEMENTAL SCALE SQ SCH ×5 (02:35→21:00)
[2016-03-14] MEDS: CHLORHEXIDINE GLUCONATE 2 % 1 PACK (2 CLOTHS) TOP SCH (02:36)
[2016-03-14 04:39] LABS: HEMATOCRIT 42.3 % (35.0-46.0); MEAN CELL VOLUME 91.7 FL (80.0-100.0); MEAN CORPUSCULAR HEMOGLOBIN 30.3 PG (27.0-34.0); MEAN CORPUSCULAR HGB CONC 33.1 % (32.0-36.0); PLATELET COUNT 175 TH/MM3 (150-450); RED BLOOD COUNT 4.61 MIL/MM3 (4.00-5.30); RED CELL DISTRIBUTION WIDTH 15.1 % (11.6-17.2); REVIEW FLAG FINAL; WHITE BLOOD COUNT 11.1 TH/MM3 (4.0-11.0)
--- NOTE | 2016-03-14 08:48 | HHI.PR ---
Subjective Remarks Follow-up for polysubstance abuse, altered mental status. Patient is currently doing well. Denies any chest pain, shortness of breath, fever or chills. On trying to stand up, patient feels unsteady. Objective Vitals Vital Signs Date Time Temp Pulse Resp B/P Pulse Ox O2 Delivery O2 Flow Rate FiO2 03/14/16 08:00 96.9 97 18 94 03/14/16 04:17 97.7 89 20 111/76 94 03/14/16 02:51 96 Nasal Cannula 4.00 03/14/16 02:37 85 03/14/16 01:29 97.6 90 20 114/81 95 03/14/16 01:00 84 16 115/84 100 Nasal Cannula 2 03/13/16 23:30 86 16 112/75 100 Nasal Cannula 2 03/13/16 23:10 98.5 98 16 105/79 98 Nasal Cannula 2 03/13/16 23:05 96 Nasal Cannula 5 03/13/16 22:17 78 93/68 99 Ventilator 03/13/16 22:00 99 40 03/13/16 21:38 79 98/72 100 Ventilator 03/13/16 21:19 79 98/72 100 Ventilator 03/13/16 21:00 100 100 03/13/16 20:11 82 83/61 100 Ventilator 03/13/16 19:50 86 80/60 98 Ventilator 03/13/16 19:30 86 93/65 Ventilator 03/13/16 19:26 85 81/58 99 Ventilator 03/13/16 19:21 85 89/62 99 Ventilator 03/13/16 19:20 100 50 03/13/16 19:19 87 92/64 99 Ventilator 03/13/16 18:40 88 107/76 100 Ventilator 03/13/16 18:30 91 105/71 100 Ventilator 03/13/16 18:25 94 105/71 100 Ventilator 03/13/16 18:15 130 111/68 100 Ventilator 03/13/16 18:13 117 105/74 100 Ventilator 03/13/16 18:02 133 18 144/73 100 03/13/16 18:00 100 100 03/13/16 17:43 97.7 158 14 108/69 100 Non-Rebreather 15 03/13/16 17:36 154 12 90/60 94 Non-Rebreather 15 03/13/16 17:36 96 Non-Rebreather 15 03/13/16 17:31 137 14 98/51 I/O 03/13/16 03/13/16 03/13/16 03/14/16 03/14/16 03/14/16 07:00 15:00 23:00 07:00 15:00 23:00 Output Total 900 ml 525 ml Balance -900 ml -525 ml Output Urine Total 900 ml 525 ml # Voids 0 Result Diagram: 03/14/16 0422 03/13/162133 Imaging Last Impressions Head CT 03/13/161753 Signed Impressions: Service Date/Time: Sunday, March 13, 2016 21:07 - CONCLUSION: No acute intracranial abnormality demonstrated. Sinus disease and chronic appearing right mastoid disease. Guillaume Ruvalcaba MD Chest X-Ray 03/13/161753 Signed Impressions: Service Date/Time: Sunday, March 13, 2016 18:17 - CONCLUSION: Tip of the endotracheal tube is close to the shabbir. It could be pulled back a couple centimeters safely. Nasogastric tube courses into the stomach. Hazy bibasilar infiltrates. Guillaume Ruvalcaba MD Objective Remarks GENERAL: AOX3, NAD. SKIN: Warm and dry. HEAD: Normocephalic. EYES: No scleral icterus. No injection or drainage. NECK: Supple, trachea midline. No JVD or lymphadenopathy. CARDIOVASCULAR: Regular rate and rhythm without murmurs, gallops, or rubs. RESPIRATORY: Breath sounds equal bilaterally. No accessory muscle use. GASTROINTESTINAL: Abdomen soft, non-tender, nondistended. MUSCULOSKELETAL: No cyanosis, or edema. BACK: Nontender without obvious deformity. No CVA tenderness. Procedures Intubated and extubated on 03/13/2016. A/P Problem List: (1) Polysubstance abuse ICD Code: F19.10 Status: Acute (2) Altered mental status ICD Code: R41.82 Status: Acute (3) Hypocalcemia ICD Code: E83.51 Status: Acute (4) Non-ST elevation myocardial infarction (NSTEMI), type 2 ICD Code: I21.4 Status: Acute Assessment and Plan This is a 50-year-old female with a history of cocaine abuse who recently got out of detox and now presents with cocaine and benzodiazepine overdose. These have apparently resolved as she is now awake and alert. She did have an elevated troponin which is likely type II and STEMI/demand ischemia and troponin leak from cocaine intoxication. We will continue gentle IV fluid hydration and trend her troponin. She is not having any signs or symptoms of acute coronary syndrome at this time. Patient was extubated in the ED by [facility] and was not admitted to ICU due to improvements. - Cocaine and Benzodiazepine overdose -- monitor for signs of withdrawal -- serum lactate 1.4 --> 1.8. -- IV fluid LR @ 100cc/hr. -- monitor for signs of benzo withdrawal -- PT consult pending. - Type II NSTEMI/Demand Ischemia -- Troponins 0.30, 0.47. Two more sets pending. -- no signs of acute coronary syndrome -- continue telemetry - Hypocalcemia -- received iv calcium in the ER -- Repeat BMP pending this AM. -- Will check Magnesium level as well. If < 2.0, we will replace Mg. - Elevated Liver Enzymes. AST 239, ALT 125, alkaline phosphatase 174. Total bilirubin 0.7 on 03/13/2016. -- likely secondary to cocaine overdose -- LFTs added to this AM's labs - only BMP was ordered. - Leukocytosis -- likely reactive, improved 23.4 --> 11.1. No infectious etiology suspected. Full code. Lovenox 40mg SQ q24h and SCDs for DVT prophylaxis Problem Qualifiers (1) Altered mental status: Qualified Code: R40.0 - Somnolence Fern Cuellar DO Mar 14, 2016 8:48 am
[2016-03-14] MEDS: DOCUSATE SODIUM 50 MG/SENNA 8.6 MG TAB PO SCH ×2 (10:22→22:55)
[2016-03-14] MEDS: SODIUM CHLORIDE 0.9% FLUSH 5 ML FLUSH IV FLUSH SCH ×2 (10:22→21:00)
[2016-03-14 11:07] LABS: BICARBONATE 22.8 MEQ/L (21.0-32.0); POTASSIUM 4.4 MEQ/L (3.5-5.1)
[2016-03-14 11:41] LABS: CALCIUM-PROTEIN CORRECTED 7.9 MG/DL (8.5-10.1)
--- NOTE | 2016-03-14 14:00 | EKG ---
Date Performed: 03/13/2016 Time Performed: 17:37:23 PTAGE: 50 years EKG: ATRIAL FIBRILLATION WITH RAPID VENTRICULAR RESPONSE INFERIOR MYOCARDIAL INFARCTION Compared to previous tracing, atrial fibrillation has replaced Sinus rhythm . ABNORMAL ECG PREVIOUS TRACING : 07/08/2010 04.00 DOCTOR: Lazaro López Interpretating Date/Time 03/14/2016 14:00:08
--- NOTE | 2016-03-14 14:01 | EKG ---
Date Performed: 03/13/2016 Time Performed: 18:37:49 PTAGE: 50 years EKG: Sinus rhythm WITH OCCASIONAL VENTRICULAR PREMATURE COMPLEXES Compared to previous tracing, the patient is no long er in atrial fibrillation. BORDERLINE ECG PREVIOUS TRACING : 03/13/2016 17.37 DOCTOR: Lazaro López Interpretating Date/Time 03/14/2016 14:00:34
--- NOTE | 2016-03-14 14:01 | EKG ---
Date Performed: 03/13/2016 Time Performed: 22:05:59 PTAGE: 50 years EKG: Sinus rhythm PROLONGED QT INTERVAL Compared to previous tracing, the QT interval is longer. ABNORMAL ECG PREVIOUS TRACING : 03/13/2016 18.37 DOCTOR: Lazaro López Interpretating Date/Time 03/14/2016 14:01:04
--- NOTE | 2016-03-14 18:44 | RADRPT ---
EXAM DATE/TIME: 03/14/2016 18:19 [place] COMPARISON: CHEST SINGLE AP, March 13, 2016, 18:17. INDICATIONS : Chest pain. MEDICAL HISTORY : Hypertension. ETOH, drug abuse. SURGICAL HISTORY : None. ENCOUNTER: Initial ACUITY: 1 day PAIN SCORE: 10/10 LOCATION: Bilateral chest FINDINGS: The heart is enlarged. Very minimal bibasilar parenchymal changes are noted. There is no alveolar c onsolidation, pneumothorax, or pleural effusion. CONCLUSION: Minimal bibasilar parenchymal changes. There is no failure. Mando Quinones MD FACR on March 14, 2016 at 18:39 Board Certified Radiologist. This report was verified electronically.
[2016-03-14 23:59] LABS: MAGNESIUM 1.3 MG/DL (1.5-2.5)
[2016-03-15] VITALS (9 sets, daily range): BP systolic 133–161; BP diastolic 90–103; PULSE 82–98; RESP 16–20; TEMP 97.6–98.8; O2SAT 93–97
[2016-03-15] MEDS: LACTATED RINGER'S 1000 ML INJ 1,000 ML IV SCH ×3 (02:42→15:21)
[2016-03-15] MEDS: INSULIN NovoLIN REGULAR SUPPLEMENTAL SCALE SQ SCH ×5 (02:44→20:42)
[2016-03-15] MEDS: CHLORHEXIDINE GLUCONATE 2 % 1 PACK (2 CLOTHS) TOP SCH (04:00)
[2016-03-15 04:33] LABS: AUTOMATED NEUTROPHIL # 5.6 TH/MM3 (1.8-7.7); BASOPHIL % 0.5 % (0.0-2.0); EOSINOPHIL # 0.1 TH/MM3 (0-0.4); EOSINOPHIL % 0.7 % (0.0-4.0); HEMATOCRIT 43.4 % (35.0-46.0); HEMO FLAGS DIFF FINAL; LYMPH % 21.3 % (9.0-44.0); LYMPHOCYTE # 1.7 TH/MM3 (1.0-4.8); MEAN CELL VOLUME 91.2 FL (80.0-100.0); MEAN CORPUSCULAR HEMOGLOBIN 30.6 PG (27.0-34.0); MEAN CORPUSCULAR HGB CONC 33.6 % (32.0-36.0); MONO % 8.8 % (0.0-8.0); NEUT % 68.7 % (16.0-70.0); PLATELET COUNT 158 TH/MM3 (150-450); RED BLOOD COUNT 4.76 MIL/MM3 (4.00-5.30); RED CELL DISTRIBUTION WIDTH 14.9 % (11.6-17.2); WHITE BLOOD COUNT 8.2 TH/MM3 (4.0-11.0)
[2016-03-15] MEDS: MAGNESIUM SULFATE 1 GM PREMIX 100 ML IV SCH ×2 (07:43→09:44)
[2016-03-15] MEDS: SODIUM CHLORIDE 0.9% FLUSH 5 ML FLUSH IV FLUSH SCH ×2 (07:43→20:41)
[2016-03-15 08:20] LABS: BLOOD UREA NITROGEN 3 MG/DL (7-18); GLOMERULAR FILTRATION RATE 78 ML/MIN (>89)
[2016-03-15 08:21] LABS: ALKALINE PHOSPHATASE 148 U/L (45-117); ALT (GPT) 80 U/L (10-53); AST (GOT) 69 U/L (15-37); SODIUM (NA) 138 MEQ/L (136-145); TOTAL BILIRUBIN ADULT 0.9 MG/DL (0.2-1.0)
[2016-03-15 08:22] LABS: ANION GAP 8 MEQ/L (5-15); BICARBONATE 27.6 MEQ/L (21.0-32.0); CHLORIDE 102 MEQ/L (98-107); POTASSIUM 3.2 MEQ/L (3.5-5.1)
[2016-03-15] MEDS: DOCUSATE SODIUM 50 MG/SENNA 8.6 MG TAB PO SCH ×2 (09:00→20:41)
[2016-03-15] MEDS ORDERED: POTASSIUM CHLORIDE 20 MEQ CONTROLLED RELEASE TAB PO ONE (09:30)
--- NOTE | 2016-03-15 09:59 | HHI.PR ---
Subjective Remarks Follow-up for overdose. The patient is seen with friends/family at bedside. The patient feels well today. She is eating well. She is able to ambulate to the restroom and feels more steady today. She reports that chest discomfort continues to improve. She is having some lower extremity cramping. She plans to go to voluntary substance abuse detox at [place]. Objective Vitals Vital Signs Date Time Temp Pulse Resp B/P Pulse Ox O2 Delivery O2 Flow Rate FiO2 03/15/16 08:11 98.1 88 16 161/94 95 03/15/16 04:51 98.8 88 18 139/103 93 03/15/16 00:04 98 03/14/16 23:35 99.4 101 16 136/88 95 03/14/16 20:30 99.4 107 18 138/87 95 03/14/16 18:00 150/78 03/14/16 17:38 100 20 174/90 99 03/14/16 16:11 98.6 103 16 151/89 93 03/14/16 15:00 105 03/14/16 12:26 98.0 98 18 139/93 92 I/O 03/14/16 03/14/16 03/14/16 03/15/16 03/15/16 03/15/16 07:00 15:00 23:00 07:00 15:00 23:00 Intake Total 2743 ml Output Total 525 ml Balance -525 ml 2743 ml Intake IV Total 2743 ml Output Urine Total 525 ml Result Diagram: 03/15/16 0411 03/15/16 0703 Imaging Last Impressions Chest X-Ray 03/14/16 0000 Signed Impressions: Service Date/Time: Monday, March 14, 2016 18:19 - CONCLUSION: Minimal bibasilar parenchymal changes. There is no failure. Mando Quinones MD FACR Head CT 03/13/16 3467 Signed Impressions: Service Date/Time: Sunday, March 13, 2016 21:07 - CONCLUSION: No acute intracranial abnormality demonstrated. Sinus disease and chronic appearing right mastoid disease. Guillaume Ruvalcaba MD Objective Remarks GENERAL: Well-developed well-nourished. In no acute distress. SKIN: Warm and dry. No lesions noted. HEENT: Normocephalic. Pupils equal and round. Mucous membranes pink and moist. CARDIOVASCULAR: Regular rate and rhythm. No murmur appreciated. Chest wall TTP. RESPIRATORY: No accessory muscle use. Clear to auscultation. Breath sounds equal bilaterally. GASTROINTESTINAL: Abdomen soft, non-tender, nondistended. Bowel sounds x4. MUSCULOSKELETAL: No obvious deformities. No clubbing or cyanosis. No edema. No calf TTP. NEUROLOGICAL: Awake and alert. No focal neurological deficits. Moves upper and lower extremities spontaneously. Normal speech. PSYCHIATRIC: Appropriate mood and affect; insight and judgment normal. Procedures Intubated and extubated on 03/13/2016. A/P Problem List: (1) Polysubstance abuse ICD Code: F19.10 Status: Acute (2) Altered mental status ICD Code: R41.82 Status: Acute (3) Hypocalcemia ICD Code: E83.51 Status: Acute (4) Non-ST elevation myocardial infarction (NSTEMI), type 2 ICD Code: I21.4 Status: Acute Assessment and Plan This is a 50-year-old female with a history of cocaine abuse who recently got out of detox and now presents with cocaine and benzodiazepine overdose. These have apparently resolved as she is now awake and alert. She did have an elevated troponin which is likely type II and STEMI/demand ischemia and troponin leak from cocaine intoxication. We will continue gentle IV fluid hydration and trend her troponin. She is not having any signs or symptoms of acute coronary syndrome at this time. Patient was extubated in the ED by [facility] and was not admitted to ICU due to improvements. - Cocaine and Benzodiazepine overdose Chest x-ray clear. EKG with NSR, no acute ST changes. -- monitor for signs of withdrawal -- serum lactate trended down to 0.8. -- IV fluid with LR @ 100cc/hr. -- monitor for signs of benzo withdrawal -- PT consulted, the restrictions. -- Case management consulted for referral to voluntary detox -- Check CPK - NSTEMI/Demand Ischemia -- Troponins 0.30, 0.47, 0.35, 0.16, 0.13. Downtrending. -- no signs of acute coronary syndrome -- continue telemetry - Hypocalcemia/hypomagnesemia/hypokalemia -- received iv calcium in the ER with improvement -- Replace potassium orally -- Replace magnesium by IV -- Monitor and replace electrolytes as needed - Elevated Liver Enzymes. AST 239, ALT 125, alkaline phosphatase 174. Total bilirubin 0.7 on 03/13/2016. -- likely secondary to cocaine overdose -- LFTs continue to trend down significantly - Leukocytosis -- likely reactive, improved 23.4 --> 8.2. Afebrile. No infectious etiology suspected. Full code. Lovenox 40mg SQ q24h and SCDs for DVT prophylaxis Discharge Planning Symptoms significantly improved. Will go to voluntary detox at [place]. Hopefully discharge later today versus tomorrow a.m. Discussed with Dr. Stoner. Attending Statement The exam, history, and the medical decision-making described in the above note were completed with the assistance of the mid-level provider. I reviewed and agree with the findings presented. I attest that I had a [id number] encounter with the patient on the same day, and personally performed and documented my assessment and findings in the medical record. Problem Qualifiers (1) Altered mental status: Qualified Code: R40.0 - Somnolence Ronni Nation Mar 15, 2016 09:59 Jaciel Stoner MD Apr 03, 2016 03:17
--- NOTE | 2016-03-15 20:29 | EKG ---
Date Performed: 03/14/2016 Time Performed: 17:39:39 PTAGE: 50 years EKG: SINUS TACHYCARDIA ABNORMAL RHYTHM ECG PREVIOUS TRACING : 03/13/2016 22.05 Compared to prior tracing no significant change DOCTOR: Scott Arana Interpretating Date/Time 03/15/2016 20:29:11
[2016-03-16 00:30] VITALS: BP 138/93; PULSE 16; RESP 16; TEMP 97.1; O2SAT 97
[2016-03-16] MEDS: LACTATED RINGER'S 1000 ML INJ 1,000 ML IV SCH (02:00)
[2016-03-16] MEDS: ENOXAPARIN SODIUM 40 MG/0.4 ML SYRINGE SQ SCH (02:00)
[2016-03-16] MEDS: INSULIN NovoLIN REGULAR SUPPLEMENTAL SCALE SQ SCH ×2 (03:00→06:12)
[2016-03-16 04:00] VITALS: BP 138/93; PULSE 83; RESP 16; TEMP 97; O2SAT 97
[2016-03-16] MEDS: CHLORHEXIDINE GLUCONATE 2 % 1 PACK (2 CLOTHS) TOP SCH (04:00)
[2016-03-16 08:00] VITALS: PULSE 73
[2016-03-16 08:20] VITALS: BP 141/96; PULSE 79; RESP 16; TEMP 98; O2SAT 94
[2016-03-16] MEDS: SODIUM CHLORIDE 0.9% FLUSH 5 ML FLUSH IV FLUSH SCH (09:00)
[2016-03-16] MEDS: DOCUSATE SODIUM 50 MG/SENNA 8.6 MG TAB PO SCH (09:00)
--- NOTE | 2016-03-16 09:15 | HHI.PR ---
Subjective Remarks Follow up for overdose. The patient is AAOx4. She wants to be discharged. She is looking into checking herself into rehab voluntarily. She has been eating well and ambulating without difficulty. Denies any chest pains or shortness of breath. Thoroughly discussed lifestyle changes and cessation from all drugs/ alcohol. Objective Vitals Vital Signs Date Time Temp Pulse Resp B/P Pulse Ox O2 Delivery O2 Flow Rate FiO2 03/16/16 08:20 98.0 79 16 141/96 94 03/16/16 04:00 97.0 83 16 138/93 97 03/16/16 00:30 97.1 16 16 138/93 97 03/15/16 20:26 97.6 83 20 133/90 95 03/15/16 19:48 87 03/15/16 16:11 98.0 86 18 159/95 97 03/15/16 15:02 82 03/15/16 11:34 98.1 87 18 140/96 95 I/O 03/15/16 03/15/16 03/15/16 03/16/16 03/16/16 03/16/16 07:00 15:00 23:00 07:00 15:00 23:00 Intake Total 3374 ml Balance 3374 ml Intake IV Total 3374 ml # Voids 6 Result Diagram: 03/15/16 0411 03/15/16 0703 Imaging Last Impressions Chest X-Ray 03/14/16 0000 Signed Impressions: Service Date/Time: Monday, March 14, 2016 18:19 - CONCLUSION: Minimal bibasilar parenchymal changes. There is no failure. Mando Quinones MD FACR Head CT 03/13/16 8254 Signed Impressions: Service Date/Time: Sunday, March 13, 2016 21:07 - CONCLUSION: No acute intracranial abnormality demonstrated. Sinus disease and chronic appearing right mastoid disease. Guillaume Ruvalcaba MD Objective Remarks GENERAL: Well-nourished, well-developed middle aged female patient in [facility]. SKIN: Warm and dry. No rash. Central line at right groin. HEAD: Normocephalic. Atraumatic. EYES: Pupils equal and round. No scleral icterus. No injection or drainage. ENT: No nasal bleeding or discharge. Mucous membranes pink and moist. NECK: Supple. Trachea midline. CARDIOVASCULAR: Regular rate and rhythm. S1, S2 noted. No murmur appreciated. RESPIRATORY: No accessory muscle use. Clear to auscultation. Breath sounds equal bilaterally. GASTROINTESTINAL: Abdomen soft, non-tender, nondistended. Normoactive bowel sounds x4. MUSCULOSKELETAL: No obvious deformities. Extremities without clubbing, cyanosis , or edema. NEUROLOGICAL: Awake and alert. No obvious cranial nerve deficits. Motor grossly within normal limits. 5/5 muscle strength in bilateral upper and lower extremities. Normal speech. PSYCHIATRIC: Appropriate mood and affect; insight and judgment normal. Procedures Intubated and extubated on 03/13/2016. Medications and IVs Current Medications Medications (Trade) Dose Ordered Sig/Latasha Route Start Time Stop Time Status Last Admin Dextrose 25 ml 25 ml UNSCH PRN IV PUSH 03/13/16 23:30 (Lr 1000 ml Inj) 1,000 ml @ 100 mls/hr Q10H IV 03/13/16 23:27 03/16/16 02:00 (NS Flush) 2 ml UNSCH PRN IV FLUSH 03/13/16 23:45 (NS Flush) 2 ml BID IV FLUSH 03/14/16 09:00 03/15/16 20:41 (Morphine Inj) 2 mg Q2H PRN IV 03/13/16 23:45 03/14/16 17:39 (Zofran Inj) 4 mg Q6H PRN IV 03/13/16 23:45 03/14/16 01:43 (Daisha-Colace) 2 tab BID PO 03/14/16 09:00 03/14/16 22:55 (Lovenox Inj) 40 mg Q24H SQ 03/14/16 00:00 03/16/16 02:00 Miscellaneous Information 1 Q361D XX 03/13/16 23:45 (Chlorhexidine 2% Cloth) 3 pack Taper DAILY@04 TOP 03/14/16 04:00 03/10/17 03:59 (Chlorhexidine 2% Cloth) 3 pack UNSCH PRN TOP 03/13/16 23:45 Urinary Catheter: No Vascular Central Line Catheter: No A/P Problem List: (1) Polysubstance abuse ICD Code: F19.10 Status: Acute (2) Altered mental status ICD Code: R41.82 Status: Acute (3) Hypocalcemia ICD Code: E83.51 Status: Acute (4) Non-ST elevation myocardial infarction (NSTEMI), type 2 ICD Code: I21.4 Status: Acute Assessment and Plan 50-year-old female with a history of cocaine abuse who recently got out of detox and now presents with cocaine and benzodiazepine overdose. S/p intubation in the ED. Patient was extubated in the ED by CCM and was not admitted to ICU due to improvements. Now resolved, AAOx4. She did have an elevated troponin which is likely secondary to demand ischemia and troponin leak from cocaine intoxication; troponin down trending. Given gentle IV fluid hydration.. She is not having any signs or symptoms of ACS at this time. - Cocaine and Benzodiazepine overdose Chest x-ray clear. EKG with NSR, no acute ST changes. -- monitor for signs of withdrawal -- serum lactate trended down to 0.8. -- IV fluid with LR @ 100cc/hr. -- monitor for signs of benzo withdrawal -- PT consulted, the restrictions. -- Case management consulted for referral to voluntary detox, completed -- CPK 204, continue oral hydration - NSTEMI/Demand Ischemia, secondary to cocaine OD -- Troponins 0.30, 0.47, 0.35, 0.16, 0.13. Downtrending. -- no signs of acute coronary syndrome -- continue telemetry -- no chest pains today - Paroxysmal Atrial Fibrillation: likely secondary to cocaine use -- no back in NSR -- start patient on aspirin and Cardizem -- no BB secondary to cocaine use - Hypocalcemia/hypomagnesemia/hypokalemia -- received IV calcium in the ER with improvement -- Replaced potassium orally -- Replaced magnesium by IV -- Monitor and replaced electrolytes as needed - Elevated Liver Enzymes. AST 239, ALT 125, alkaline phosphatase 174. Total bilirubin 0.7 on 03/13/2016. -- likely secondary to cocaine overdose and alcohol use -- LFTs continued to trend down significantly - Leukocytosis -- likely reactive, improved 23.4 --> 8.2. Afebrile. No infectious etiology suspected. Resolved. Full code. Lovenox 40mg SQ q24h and SCDs for DVT prophylaxis Written by Magalis Miranda, acting as scribe for Dr. Encarnacion on 03/16/16 at 09: 12. The documentation accurately reflects the work performed [id number] by me on at 0912 Discharge Planning Remove central line today. Discussed with RN, patient will be discharged. She is motivated to go to rehab voluntarily after discharge. Discharge patient to drug rehab voluntarily Condition on discharge: Improved Heart Healthy Diet as tolerated Ad Shelly activity Rx written: aspirin, cardizem Follow-up with primary care physician within 1 week Follow up with drug/alcohol rehab today Problem Qualifiers (1) Altered mental status: Qualified Code: R40.0 - Somnolence Magalis Miranda PA-C Mar 16, 2016 09:15 Hevre Encarnacion MD Mar 16, 2016 18:06
[2016-03-16] MEDS ORDERED: ASPIRIN EC 81 MG TABEC PO SCH (11:00)
[2016-03-16] MEDS ORDERED: DILTIAZEM HCL 30 MG TAB PO SCH (13:00)
--- NOTE | 2016-03-16 18:08 | HHI.DS ---
Discharge Summary Admission Date Mar 13, 2016 at 22:51 Discharge Date: Mar 16, 2016 Admitting Diagnosis AMS, Polysubstance abuse, leukocytosis (1) Polysubstance abuse ICD Code: F19.10 Diagnosis: Principal (2) Altered mental status ICD Code: R41.82 Diagnosis: Principal (3) Hypocalcemia ICD Code: E83.51 Diagnosis: Principal (4) Non-ST elevation myocardial infarction (NSTEMI), type 2 ICD Code: I21.4 Diagnosis: Principal Procedures Intubated and extubated on 03/13/2016. Brief History - From Admission This is a 50-year-old female who presented by EMS for altered mental status. She apparently completed detox yesterday and was sent home where she used cocaine and benzodiazepines, and overdosed on this. EMS found her unresponsive and intubated her. When I evaluated the patient, she was now awake and alert. She passed her SBT and I extubate her in the emergency department. She stated she doesn't remember much, except for leaving detox and then doing some cocaine. She denies any complaints, particularly chest pain, shortness of breath, headache, fever or chills, nausea vomiting constipation or diarrhea or abdominal pain. Critical care medicine was initially consulted to evaluate her altered mental status and respiratory failure, both which have now resolved. Of note, she does have an elevated troponin at 0.3. She was also initially in atrial fibrillation with rapid ventricular response when she presented to the ER , but converted spontaneously to normal sinus rhythm. CBC/BMP: 03/15/16 0411 03/15/16 0703 Significant Findings Laboratory Tests Test 03/13/16 03/13/16 03/13/16 03/13/16 18:29 19:42 21:34 21:50 Blood Gas HCO3 17 mmol/L 17 mmol/L (22-26) (22-26) Blood Gas Base Excess -10.5 mmol/L -8.5 mmol/L (-2-2) (-2-2) Arterial Blood pH 7.17 7.27 (7.380-7.420) (7.380-7.420) Arterial Blood Partial 47 mmHg (38-42) Pressure CO2 Arterial Blood Partial 330 mmHG 130 mmHG Pressure O2 (61-120) (61-120) Arterial Blood Oxygen Content 22.9 Vol % 20.2 Vol % (12.0-20.0) (12.0-20.0) Arterial Blood Methemoglobin 2.1 % (0-2) 2.1 % (0-2) Blood Gas Hemoglobin 16.4 G/DL (12.0-16.0) Troponin I 0.30 NG/ML (0.02-0.05) Chloride Level 109 MEQ/L (98-107) Carbon Dioxide Level 20.0 MEQ/L (21.0-32.0) Estimat Glomerular Filtration 59 ML/MIN (>89) Rate Random Glucose 116 MG/DL (74-106) Calcium Level 6.4 MG/DL (8.5-10.1) Protein Corrected Calcium 7.0 MG/DL (8.5-10.1) Aspartate Amino Transf 239 U/L (15-37) (AST/SGOT) Alanine Aminotransferase 125 U/L (10-53) (ALT/SGPT) Alkaline Phosphatase 174 U/L (45-117) Total Protein 5.9 GM/DL (6.4-8.2) Albumin 2.7 GM/DL (3.4-5.0) Salicylates Level LESS THAN 1.7 MG/DL (2.8-20.0) Acetaminophen Level LESS THAN 2.0 MCG/ML (10.0-30.0) Ethyl Alcohol Level 22 MG/DL (0-5) Test 03/14/16 03/14/16 03/14/16 03/14/16 04:22 04:27 12:05 17:50 White Blood Count 11.1 TH/MM3 (4.0-11.0) Chloride Level 110 MEQ/L (98-107) Estimat Glomerular Filtration 66 ML/MIN (>89) Rate Calcium Level 7.3 MG/DL (8.5-10.1) Protein Corrected Calcium 7.9 MG/DL (8.5-10.1) Troponin I 0.47 NG/ML 0.35 NG/ML 0.16 NG/ML (0.02-0.05) (0.02-0.05) (0.02-0.05) Total Protein 6.0 GM/DL (6.4-8.2) Test 03/14/16 03/15/16 03/15/16 23:25 04:11 07:03 Magnesium Level 1.3 MG/DL (1.5-2.5) Troponin I 0.16 NG/ML 0.13 NG/ML (0.02-0.05) (0.02-0.05) Monocytes (%) (Auto) 8.8 % (0.0-8.0) Potassium Level 3.2 MEQ/L (3.5-5.1) Blood Urea Nitrogen 3 MG/DL (7-18) Estimat Glomerular Filtration 78 ML/MIN (>89) Rate Calcium Level 7.7 MG/DL (8.5-10.1) Aspartate Amino Transf 69 U/L (15-37) (AST/SGOT) Alanine Aminotransferase 80 U/L (10-53) (ALT/SGPT) Alkaline Phosphatase 148 U/L (45-117) Total Creatine Kinase 204 U/L (26-192) Total Protein 5.8 GM/DL (6.4-8.2) Albumin 2.5 GM/DL (3.4-5.0) Imaging Last Impressions Chest X-Ray 03/14/16 0000 Signed Impressions: Service Date/Time: Monday, March 14, 2016 18:19 - CONCLUSION: Minimal bibasilar parenchymal changes. There is no failure. Mando Quinones MD FACR Head CT 03/13/16 1754 Signed Impressions: Service Date/Time: Sunday, March 13, 2016 21:07 - CONCLUSION: No acute intracranial abnormality demonstrated. Sinus disease and chronic appearing right mastoid disease. Guillaume Ruvalcaba MD PE at Discharge GENERAL: Well-nourished, well-developed middle aged female patient in [facility]. SKIN: Warm and dry. No rash. Central line at right groin. HEAD: Normocephalic. Atraumatic. EYES: Pupils equal and round. No scleral icterus. No injection or drainage. ENT: No nasal bleeding or discharge. Mucous membranes pink and moist. NECK: Supple. Trachea midline. CARDIOVASCULAR: Regular rate and rhythm. S1, S2 noted. No murmur appreciated. RESPIRATORY: No accessory muscle use. Clear to auscultation. Breath sounds equal bilaterally. GASTROINTESTINAL: Abdomen soft, non-tender, nondistended. Normoactive bowel sounds x4. MUSCULOSKELETAL: No obvious deformities. Extremities without clubbing, cyanosis , or edema. NEUROLOGICAL: Awake and alert. No obvious cranial nerve deficits. Motor grossly within normal limits. 5/5 muscle strength in bilateral upper and lower extremities. Normal speech. PSYCHIATRIC: Appropriate mood and affect; insight and judgment normal. Hospital Course 50-year-old female with a history of cocaine abuse who recently got out of detox and now presents with cocaine and benzodiazepine overdose. S/p intubation in the ED. Patient was extubated in the ED by CCM and was not admitted to ICU due to improvements. Now resolved, AAOx4. She did have an elevated troponin which is likely secondary to demand ischemia and troponin leak from cocaine intoxication; troponin down trending. Given gentle IV fluid hydration.. She is not having any signs or symptoms of ACS at this time. - Cocaine and Benzodiazepine overdose Chest x-ray clear. EKG with NSR, no acute ST changes. -- monitor for signs of withdrawal -- serum lactate trended down to 0.8. -- IV fluid with LR @ 100cc/hr. -- monitor for signs of benzo withdrawal -- PT consulted, the restrictions. -- Case management consulted for referral to voluntary detox, completed -- CPK 204, continue oral hydration - NSTEMI/Demand Ischemia, secondary to cocaine OD -- Troponins 0.30, 0.47, 0.35, 0.16, 0.13. Downtrending. -- no signs of acute coronary syndrome -- continue telemetry -- no chest pains today - Paroxysmal Atrial Fibrillation: likely secondary to cocaine use -- no back in NSR -- start patient on aspirin and Cardizem -- no BB secondary to cocaine use - Hypocalcemia/hypomagnesemia/hypokalemia -- received IV calcium in the ER with improvement -- Replaced potassium orally -- Replaced magnesium by IV -- Monitor and replaced electrolytes as needed - Elevated Liver Enzymes. AST 239, ALT 125, alkaline phosphatase 174. Total bilirubin 0.7 on 03/13/2016. -- likely secondary to cocaine overdose and alcohol use -- LFTs continued to trend down significantly - Leukocytosis -- likely reactive, improved 23.4 --> 8.2. Afebrile. No infectious etiology suspected. Resolved. Full code. Lovenox 40mg SQ q24h and SCDs for DVT prophylaxis Pt Condition on Discharge: Stable Discharge Disposition: Disc to Psych Care Fac Discharge Time: <= 30 minutes Discharge Instructions DIET: Follow Instructions for: As Tolerated, No Restrictions Activities you can perform: Regular-No Restrictions Follow up Referrals: Behavioral Services - Next Day with Jose Alberto Benedict PCP Follow-up - 1 Week New Medications: Aspirin DR (Aspirin EC) 81 Mg Tabdr 81 MG PO DAILY Prevent Blood Clot #30 TAB Diltiazem (Cardizem) 30 Mg Tab 30 MG PO QID Regulate Heart Beat #120 TAB Herve Encarnacion MD Mar 16, 2016 18:08
[2016-03-16] MEDS ORDERED: ASPI81TA11 PO (18:09)
[2016-03-16] MEDS ORDERED: DILT31TA PO (18:09)
== END 2016-03-16 12:31 | DRG 917 ==
LOC: NEPC 17:29 → NEDA 22:51 → NEPFCDU 03-14 01:23
PROVIDERS: ADMIT Internal Medicine; ATTEND Internal Medicine
PROC: 5A1945Z Respiratory Ventilation, 24-96 Consecutive Hours (ICD-10-PCS; principal; 2016-03-13)
PROC: 0BH17EZ Insertion of Endotracheal Airway into Trachea, Via Natural or Artificial Opening (ICD-10-PCS; 2016-03-13)
DX: T42.4X1A Poisoning by benzodiazepines, accidental (unintentional), initial encounter (principal); J96.91 Respiratory failure, unspecified with hypoxia; K72.00 Acute and subacute hepatic failure without coma; I21.4 Non-ST elevation (NSTEMI) myocardial infarction; I95.9 Hypotension, unspecified; E87.2 Acidosis; E83.42 Hypomagnesemia; E83.51 Hypocalcemia; I48.0 Paroxysmal atrial fibrillation; D72.829 Elevated white blood cell count, unspecified; T40.5X1A Poisoning by cocaine, accidental (unintentional), initial encounter; E87.6 Hypokalemia; F14.129 Cocaine abuse with intoxication, unspecified
CPT/HCPCS: 31500; 36556; 36600; 51702; 70450; 71010; 80048; 80053; 80307; 80320; 80329; 81001; 82550; 82552; 82805; 82948; 83605; 83735; 84155; 84484; 84702; 84703; 85025; 85027; 85610; 85730; 87040; 87641; 93005; 94002; 94150; 94640; 94667; 94668; 96365; 96368; 96374; 96375; G0480; J0330; J0610; J0692; J1650; J2270; J2310; J2370; J2405; J3370; J3475; J7030; J7050; J7120